=== PATIENT | female | born 1985 | race Caucasian/White ===

== ENCOUNTER → 2016-11-24 | Outpatient (CLI) | payer BC ==
[~2016-11-24] MED LIST: BENZ56AE TP; CODE-54 PO; Docusate Sodium PO; EST1.25T PO; FRS325T PO; Ibuprofen PO; MEDR10TA9 PO; PNV1TABL67 PO
--- NOTE | 2016-11-24 16:01 | Diagnostic Imaging Report ---
INDICATION: survey. TECHNIQUE: Multiple real-time grayscale images were obtained over the gravid uterus. COMPARISON: None FINDINGS: heart rate is 170 beats per minute. The placenta is posterior. No placenta previa. The cervix is the long at 7.1 cm in length and is closed. This measurement might be exaggerated by biometric contraction in the lower uterine segment. The spine, the cord insertion, the bladder, and the kidneys appear unremarkable. The stomach is seen. The four-chamber view is not well noted due to position. The posterior fossa and the lateral ventricle appear unremarkable. There is a two vessel cord seen. Biometrical measurements are as follows: Biparietal 4.4 cm, age 19 weeks 3 days. Head circumference 17.27 cm, age 19 weeks 6 days. Abdominal circumference 13.3 cm, age 18 weeks 6 days. Femur length 3.22 cm, age 20 weeks 1 days. Sonographic estimate age: 19 weeks 4 days. Sonographic estimated date of delivery: 04/16/2017. Estimated Weight: 292 gm (+/- 43 gm). LMP percentile: 18%. heart rate: 170 beats per minute. number: 1 of 1. IMPRESSION: 1. There is a two-vessel cord seen. This increases potential for anomalies or chromosomal anomalies. Consider detailed anatomic survey at a specialized center for better evaluation. 2. The four-chamber view is not well seen due to position. Reevaluation within 2 weeks is suggested. Dictated by: Dictated on workstation # [id number]
== END ==
LOC: RAD 10:03
PROVIDERS: ATTEND Obstetrics & Gynecology
DX: Z36.3 Encounter for antenatal screening for malformations (principal); Z3A.19 19 weeks gestation of pregnancy
CPT/HCPCS: 76805

== ENCOUNTER 2017-03-30 07:00 | Inpatient (IN) | payer BC ==
[~2017-03-30] VITALS: Ht 170.2 cm; Wt 92.1 kg
[2017-03-30] VITALS (36 sets, daily range): BP systolic 115–158; BP diastolic 61–89
[2017-03-30] MEDS ORDERED: D5 LR IV SOLUTION 1,000 ML IV SCH (07:20)
[2017-03-30] MEDS ORDERED: MINERAL OIL CONCENTRATE 99.9% 15 ML UDC TOP PRN (07:30)
[2017-03-30 08:09] LABS: BASOPHILS % (AUTO) 0 % (0-10); EOSINOPHILS % (AUTO) 0 % (0-10); HEMATOCRIT 36 % (35-52); HEMOGLOBIN 11.9 G/DL (11.5-16.0); LYMPHOCYTES # (AUTO) 1.7 X 10^3 (1.0-4.0); LYMPHOCYTES % (AUTO) 23 % (12-44); MEAN CORPUSCULAR HEMOGLOBIN 28 PG (25-34); MEAN CORPUSCULAR HGB CONC 33 G/DL (32-36); MEAN CORPUSCULAR VOLUME 83 FL (80-99); MONOCYTES # (AUTO) 0.6 X 10^3 (0.0-1.0); MONOCYTES % (AUTO) 8 % (0-12); NEUTROPHILS % (AUTO) 68 % (42-75); PLATELET COUNT 76 10^3/uL (130-400); RED BLOOD COUNT 4.31 10^6/uL (4.35-5.85); RED CELL DISTRIBUTION WIDTH 13.4 % (10.0-14.5); WHITE BLOOD COUNT 7.3 10^3/uL (4.3-11.0)
[2017-03-30 08:24] LABS: SMEAR SCAN COMMENT YES
[2017-03-30] MEDS ORDERED: AMPICILLIN 2000 MG INJECTION (IM/IV) ONE (08:43)
[2017-03-30] MEDS ORDERED: AMPICILLIN INJECTION 2,000 MG in NS (IVPB) 50 ML IV ONE (08:45)
--- NOTE | 2017-03-30 08:48 | History & Physical-OB ---
OB - Chief Complaint & HPI Date/Time Date of Admission: Date of Admission: Mar 30, 2017 at 7:00 am Time Seen by Provider: 08:30 Chief Complaint/History OB-Reason for Admission/Chief: Induction of Labor Hx : 2 Hx Para: 1 Expected Date of Delivery: Apr 13, 2017 Gestational Age in Weeks: 38 Other reason for admission: Gestational Thrombocytopenia History of Labs AB pos Antibody neg RI RPR NR HIV NR HBsAg NR GC neg GBS + Allergies and Home Medications Allergies Coded Allergies: No Known Drug Allergies (Unverified , 12/26/13) Home Medications Acetaminophen/Codeine 1 Tab Tablet, 1-2 TAB PO Q4H PRN for MODERATE TO SEVERE PAIN, #30 Prescribed by: KANG SOUZA on 12/28/13 0820 Benzocaine/Menthol 56 Ml Aerosol, 0 ML TP UD PRN for PAIN, #1 Prescribed by: KANG SOUZA on 12/28/13 0820 Ferrous Sulfate 325 Mg Tab, 325 MG PO DAILY@08, #60 Prescribed by: KANG SOUZA on 12/28/13 0820 Medroxyprogesterone Acetate 10 Mg Tablet, 10 MG PO BID for 10 Days Prescribed by: TIERRA GREGORY on 05/07/15 2213 Pnv with Ca,No.72/Iron/FA 1 Ea Tab, 1 EA PO DAILY@0700, #60 Prescribed by: KANG SOUZA on 12/28/13 0820 [Docusate Sodium] 100 MG CAP, 100 MG PO BID Prescribed by: KANG SOUZA on 12/28/13 0820 [Ibuprofen] 600 MG TAB, 600 MG PO Q6H, #60 Prescribed by: KANG SOUZA on 12/28/13 0820 OB - History Hx of Present Care: Yes Ultrasounds: Normal mid trimester US Obstetrical Complications: Other (gestational thrombocytopenia) Medical Complications: None Delivery History Hx Blood Disorders: No Adverse Rxn to Tranfusion: No Patient Past Medical History n/a Social History/Family History HIV/AIDS: No Recent Infectious Disease Expo: No Sexually Transmitted Disease: Yes (CHAMYDIA) Alcohol Use: Denies Use Recreational Drug Use: No Immunizations Hepatitis A: No Hepatitis B: No Tetanus Booster (TDap): Unknown OB - Admission Exam Physical Exam HEENT: NCAT Heart: Rhythm Normal Lungs: Clear Abdomen: Gravid Extremities: Normal Reflexes: Normal Cervical Dilatation: 3cm Effacement: 75% Station: -1 Membranes: Intact Heart Rate: 130's Accelerations: Accelerations Present Decelerations: No Decelerations Short Term Variability: Present Fdc Variability: Average (6-25) Contractions on Admission: 6-10 Minutes Apart Intensity: Moderate Gonzalez Scoring Tool (Modified) Dilation (cm): 3-4cm (2) Effacement (%): 51-79% (2) Descent/Station: -1,0 (2) Cervix Consistency: Soft (2) Cervix Position: Anterior (2) Add 1 point for: Each previous vaginal delivery (1) Gonzalez Score: 11 Labs Laboratory Tests Test 03/30/17 08:00 Range/Units White Blood Count 7.3 4.3-11.0 10^3/uL Red Blood Count 4.31 L 4.35-5.85 10^6/uL Hemoglobin 11.9 11.5-16.0 G/DL Hematocrit 36 35-52 % Mean Corpuscular Volume 83 80-99 FL Mean Corpuscular Hemoglobin 28 25-34 PG Mean Corpuscular Hemoglobin Concent 33 32-36 G/DL Red Cell Distribution Width 13.4 10.0-14.5 % Platelet Count 76 L 130-400 10^3/uL Mean Platelet Volume 7.4-10.4 FL Neutrophils (%) (Auto) 68 42-75 % Lymphocytes (%) (Auto) 23 12-44 % Monocytes (%) (Auto) 8 0-12 % Eosinophils (%) (Auto) 0 0-10 % Basophils (%) (Auto) 0 0-10 % Neutrophils # (Auto) 5.0 1.8-7.8 X 10^3 Lymphocytes # (Auto) 1.7 1.0-4.0 X 10^3 Monocytes # (Auto) 0.6 0.0-1.0 X 10^3 Eosinophils # (Auto) 0.0 0.0-0.3 10^3/uL Basophils # (Auto) 0.0 0.0-0.1 10^3/uL Smear Scan YES OB - Assessment/Plan/Diagnosis Assessment Assessment: induction of labor Plan Induction Method: AROM Discharge Diagnosis Diagnosis: 32 yo @ 38 weeks gestation Gestational thrombocytopenia 78 this AM GBS pos KANG SOUZA DO Mar 30, 2017 8:47 am
[2017-03-30] MEDS ORDERED: INFLUENZA TRIvalent 2017-2018 0.5 ML/45 MCG SYR IM ONE (09:15)
[2017-03-30] MEDS ORDERED: HYDROmorphone (DILAUDID) 2 MG/ML VIAL IVP PRN (12:30)
[2017-03-30] MEDS: OXYTOCIN/NORMAL SALINE 500 ML IV SCH ×2 (12:56→15:43)
[2017-03-30] MEDS ORDERED: AMPICILLIN INJECTION 1,000 MG in NS (IVPB) 50 ML IV SCH (13:00)
[2017-03-30] MEDS ORDERED: OXYTOCIN/NORMAL SALINE 500 ML IV SCH (15:57)
[2017-03-30] MEDS ORDERED: BENZOCAINE/MENTHOL (DERMOPLAST) 56 ML CAN TP PRN ×2 (16:00→17:00)
[2017-03-30] MEDS ORDERED: MEASLES,MUMPS,RUBELLA 1 EA INJ SQ ONE (16:00)
[2017-03-30] MEDS ORDERED: TETANUS,DIPTH,PERTUSS P/F (BOOSTRIX) 0.5 ML VIAL IM ONE (16:00)
[2017-03-30] MEDS ORDERED: WITCH HAZEL(TUCKS) 40 EA JAR TOP PRN ×2 (16:00→17:00)
[2017-03-30] MEDS: IBUPROFEN 600 MG (MOTRIN) TAB PO SCH ×2 (16:54→23:49)
[2017-03-30] MEDS ORDERED: HYDROcodone/APAP 5 MG/325 MG (LORTAB) TAB PO PRN (17:00)
[2017-03-30] MEDS ORDERED: IBUPROFEN 600 MG (MOTRIN) TAB PO SCH (17:00)
[2017-03-30] MEDS ORDERED: DIBUCAINE (NUPERCAINAL) 1% OINT 30 GM TOP PRN (17:00)
--- NOTE | 2017-03-30 17:05 | OB Labor & Delivery Record ---
L&D History Date of Service Date of Service: Mar 30, 2017 History Expected Date of Delivery: Apr 13, 2017 Gestational Age in Weeks: 38 Hx : 2 Hx Para: 1 Complications Events: Routine care Operative Indications (Cesarea: N/A-Vaginal Delivery Intrapartal Events: None Other Complications Gestational thrombocytopenia L&D Stage1 Stage One Onset of Labor - Date: Mar 30, 2017 Monitors and Tracing Monitor Mode: External Heart Rate: 140 Station: +2 Vital Signs VS - Last 72 Hours, by Label 03/30/17 03/30/17 03/30/17 03/30/17 08:00 08:20 08:45 09:00 Temp 98.6 Pulse 83 85 86 85 Resp 18 B/P (MAP) 141/78 (99) 137/73 (94) 132/71 (91) 134/82 (99) O2 Delivery Room Air Room Air Room Air 03/30/17 03/30/17 03/30/17 03/30/17 09:15 09:30 09:45 10:00 Temp 98.8 Pulse 83 82 82 86 Resp 20 B/P (MAP) 145/75 (98) 133/64 (87) 134/69 (90) 129/77 (94) O2 Delivery Room Air Room Air Room Air Room Air 03/30/17 03/30/17 03/30/17 03/30/17 10:15 10:30 10:45 11:00 Pulse 82 78 75 80 B/P (MAP) 130/76 (94) 132/78 (96) 126/61 (82) 127/69 (88) O2 Delivery Room Air Room Air Room Air Room Air 03/30/17 03/30/17 03/30/17 03/30/17 11:15 11:30 11:45 12:00 Pulse 76 76 83 85 B/P (MAP) 131/62 (85) 133/65 (87) 135/72 (93) 143/89 (107) O2 Delivery Room Air Room Air Room Air Room Air 03/30/17 03/30/17 03/30/17 03/30/17 12:15 12:30 12:45 13:00 Pulse 80 78 80 81 Resp 18 B/P (MAP) 137/88 (104) 141/74 (96) 120/70 (87) 125/78 (94) O2 Delivery Room Air Room Air Room Air Room Air 03/30/17 03/30/17 03/30/17 03/30/17 13:15 13:30 13:45 14:00 Temp 98.6 Pulse 76 73 80 81 Resp 22 B/P (MAP) 122/61 (81) 127/69 (88) 137/75 (95) 132/71 (91) O2 Delivery Room Air Room Air Room Air Room Air 03/30/17 03/30/17 03/30/17 14:15 14:30 14:45 Pulse 80 93 74 B/P (MAP) 158/74 (102) 144/76 (98) 133/71 (91) O2 Delivery Room Air Room Air Room Air Rupture of Membranes Amniotic Membrane Rupture Time: 827 Amniotic Membrane Fluid Desc.: Clear Vaginal Bleeding Description: Normal Show L&D Stage2 Stage Two Stage II Date: Mar 30, 2017 Monitors and Tracing Monitor Mode: External Heart Rate: 140 Position: Right Occiput Anterior Presentation: Vertex Cord Descript/Complications Cord Vessel Description: 3 Vessels Delivery Type Delivery Method: Spontaneous Vaginal Anterior Shoulder: Right Episiotomy/Perineal Laceration Laceraction(s)/Extensions: No Condition of Infant Delivery 1 minute Comment: 8 5 minute Comment: 9 Notes Live female infant weight 7lbs 11 oz Condition of Infant Condition of : Living Exam: No Observed Abnormalities Resuscitation Resuscitation: N/A - Spontaneous Resp L&D Stage3 Stage Three Stage III Date: Mar 30, 2017 Pictocin Pitocin Administration mu/min: 4 Pitocin ml/hr: 4 Pitocin Administration Comment: 30 mu wide open at delviery of placenta Placenta Delivery Placenta Delivery: Spontaneous Delivery Summary Summary Estimated blood loss (mL): 300 Attending at delivery: Kang Souza DO Condition of Delivery Examined: Cervix Examined, Uterus Explored Post Hemorrhage: No Condition of Mother stable Condition of (s) stable KANG SOUZA DO Mar 30, 2017 5:05 pm
[2017-03-30] MEDS: DOCUSATE SODIUM 100 MG (COLACE) CAP PO SCH (21:47)
[2017-03-30] MEDS ORDERED: CATHETER FLUSH 10 ML SYR IV SCH ×2 (22:00)
[2017-03-31 05:25] VITALS: BP 128/72
[2017-03-31] MEDS: IBUPROFEN 600 MG (MOTRIN) TAB PO SCH (05:25)
[2017-03-31 06:25] LABS: BASOPHILS % (AUTO) 0 % (0-10); EOSINOPHILS % (AUTO) 0 % (0-10); HEMATOCRIT 30 % (35-52); HEMOGLOBIN 9.7 G/DL (11.5-16.0); LYMPHOCYTES # (AUTO) 1.2 X 10^3 (1.0-4.0); LYMPHOCYTES % (AUTO) 17 % (12-44); MEAN CORPUSCULAR HEMOGLOBIN 27 PG (25-34); MEAN CORPUSCULAR HGB CONC 33 G/DL (32-36); MEAN CORPUSCULAR VOLUME 83 FL (80-99); MONOCYTES # (AUTO) 0.5 X 10^3 (0.0-1.0); MONOCYTES % (AUTO) 7 % (0-12); NEUTROPHILS # (AUTO) 5.7 X 10^3 (1.8-7.8); NEUTROPHILS % (AUTO) 76 % (42-75); PLATELET COUNT 73 10^3/uL (130-400); RED BLOOD COUNT 3.57 10^6/uL (4.35-5.85); RED CELL DISTRIBUTION WIDTH 13.1 % (10.0-14.5); WHITE BLOOD COUNT 7.5 10^3/uL (4.3-11.0)
[2017-03-31] MEDS: DOCUSATE SODIUM 100 MG (COLACE) CAP PO SCH (08:25)
[2017-03-31] MEDS: PRENATAL VITAMIN 1 EA TAB PO SCH (08:25)
[2017-03-31] MEDS: FERROUS SULF 325 MG (IRON) TAB PO SCH (08:25)
[2017-03-31 08:26] VITALS: BP 117/73
--- NOTE | 2017-03-31 10:15 | Postpartum Progress Note ---
Note Note Day # 1 Subjective: Patient is without complaints. Ambulating, voiding. Tolerating a regular diet without nausea or vomiting. Normal lochia. Pain is well controlled with oral pain medications. Objective: Vital Sign - Last 24 Hours 03/30/17 03/30/17 03/30/17 03/30/17 10:15 10:30 10:45 11:00 Pulse 82 78 75 80 B/P (MAP) 130/76 (94) 132/78 (96) 126/61 (82) 127/69 (88) O2 Delivery Room Air Room Air Room Air Room Air 03/30/17 03/30/17 03/30/17 03/30/17 11:15 11:30 11:45 12:00 Pulse 76 76 83 85 B/P (MAP) 131/62 (85) 133/65 (87) 135/72 (93) 143/89 (107) O2 Delivery Room Air Room Air Room Air Room Air 03/30/17 03/30/17 03/30/17 03/30/17 12:15 12:30 12:45 13:00 Pulse 80 78 80 81 Resp 18 B/P (MAP) 137/88 (104) 141/74 (96) 120/70 (87) 125/78 (94) O2 Delivery Room Air Room Air Room Air Room Air 03/30/17 03/30/17 03/30/17 03/30/17 13:15 13:30 13:45 14:00 Temp 98.6 Pulse 76 73 80 81 Resp 22 B/P (MAP) 122/61 (81) 127/69 (88) 137/75 (95) 132/71 (91) O2 Delivery Room Air Room Air Room Air Room Air 03/30/17 03/30/17 03/30/17 03/30/17 14:15 14:30 14:45 15:15 Temp 97.6 Pulse 80 93 74 78 Resp 20 B/P (MAP) 158/74 (102) 144/76 (98) 133/71 (91) 141/73 (95) O2 Delivery Room Air Room Air Room Air Room Air 03/30/17 03/30/17 03/30/17 03/30/17 15:27 15:45 15:57 16:13 Pulse 85 85 83 78 B/P (MAP) 132/70 (90) 140/65 (90) 138/68 (91) 141/73 (95) O2 Delivery Room Air Room Air Room Air Room Air 03/30/17 03/30/17 03/30/17 03/30/17 16:28 16:42 22:00 23:49 Temp 97.8 98.1 Pulse 86 77 80 78 Resp 18 18 18 B/P (MAP) 128/67 (87) 133/66 (88) 130/78 (95) 115/71 (86) Pulse Ox 98 98 O2 Delivery Room Air Room Air Room Air Room Air 03/31/17 03/31/17 05:25 08:26 Temp 97.5 98.0 Pulse 91 92 Resp 18 18 B/P (MAP) 128/72 (90) 117/73 (88) Pulse Ox 99 98 O2 Delivery Room Air Room Air Intake and Output 03/30/17 03/30/17 03/31/17 15:00 23:00 07:00 Intake Total 50 ml 1950 ml Balance 50 ml 1950 ml Laboratory Tests Test 03/31/17 05:23 Range/Units White Blood Count 7.5 4.3-11.0 10^3/uL Red Blood Count 3.57 L 4.35-5.85 10^6/uL Hemoglobin 9.7 L 11.5-16.0 G/DL Hematocrit 30 L 35-52 % Mean Corpuscular Volume 83 80-99 FL Mean Corpuscular Hemoglobin 27 25-34 PG Mean Corpuscular Hemoglobin Concent 33 32-36 G/DL Red Cell Distribution Width 13.1 10.0-14.5 % Platelet Count 73 L 130-400 10^3/uL Mean Platelet Volume 7.4-10.4 FL Neutrophils (%) (Auto) 76 H 42-75 % Lymphocytes (%) (Auto) 17 12-44 % Monocytes (%) (Auto) 7 0-12 % Eosinophils (%) (Auto) 0 0-10 % Basophils (%) (Auto) 0 0-10 % Neutrophils # (Auto) 5.7 1.8-7.8 X 10^3 Lymphocytes # (Auto) 1.2 1.0-4.0 X 10^3 Monocytes # (Auto) 0.5 0.0-1.0 X 10^3 Eosinophils # (Auto) 0.0 0.0-0.3 10^3/uL Basophils # (Auto) 0.0 0.0-0.1 10^3/uL Physical Exam: General - Alert and oriented, no apparent distress Abdomen - Soft, appropriately tender to palpation, non-distended, fundus firm at umbilicus Extremities - no edema, negative Olman's bilaterally Assessment: PPD 1 NVD Recovering well, hemodynamically stable Acute blood loss anemia Gestational thrombocytopenia Plan: Routine care. Encourage breast feeding. Encourage ambulation. Ferrous sulfate supplementation. Plan for discharge tomorrow, repeat plts tomorrow Vitals - Labs Vital Signs - I&O Vital Signs Date Time Temp Pulse Resp B/P (MAP) Pulse Ox O2 Delivery O2 Flow Rate FiO2 03/31/17 08:26 98.0 92 18 117/73 (88) 98 Room Air 03/31/17 05:25 97.5 91 18 128/72 (90) 99 Room Air 03/30/17 23:49 98.1 78 18 115/71 (86) 98 Room Air 03/30/17 22:00 97.8 80 18 130/78 (95) 98 Room Air 03/30/17 16:42 77 18 133/66 (88) Room Air 03/30/17 16:28 86 128/67 (87) Room Air 03/30/17 16:13 78 141/73 (95) Room Air 03/30/17 15:57 83 138/68 (91) Room Air 03/30/17 15:45 85 140/65 (90) Room Air 03/30/17 15:27 85 132/70 (90) Room Air 03/30/17 15:15 97.6 78 20 141/73 (95) Room Air 03/30/17 14:45 74 133/71 (91) Room Air 03/30/17 14:30 93 144/76 (98) Room Air 03/30/17 14:15 80 158/74 (102) Room Air 03/30/17 14:00 81 132/71 (91) Room Air 03/30/17 13:45 80 137/75 (95) Room Air 03/30/17 13:30 98.6 73 22 127/69 (88) Room Air 03/30/17 13:15 76 122/61 (81) Room Air 03/30/17 13:00 81 125/78 (94) Room Air 03/30/17 12:45 80 18 120/70 (87) Room Air 03/30/17 12:30 78 141/74 (96) Room Air 03/30/17 12:15 80 137/88 (104) Room Air 03/30/17 12:00 85 143/89 (107) Room Air 03/30/17 11:45 83 135/72 (93) Room Air 03/30/17 11:30 76 133/65 (87) Room Air 03/30/17 11:15 76 131/62 (85) Room Air 03/30/17 11:00 80 127/69 (88) Room Air 03/30/17 10:45 75 126/61 (82) Room Air 03/30/17 10:30 78 132/78 (96) Room Air 03/30/17 10:15 82 130/76 (94) Room Air I & O 03/31/17 07:00 Intake Total 2000 ml Balance 2000 ml Labs Laboratory Tests 03/31/17 05:23: White Blood Count 7.5, Red Blood Count 3.57L, Hemoglobin 9.7L, Hematocrit 30L, Mean Corpuscular Volume 83, Mean Corpuscular Hemoglobin 27, Mean Corpuscular Hemoglobin Concent 33, Red Cell Distribution Width 13.1, Platelet Count 73L, Mean Platelet Volume , Neutrophils (%) (Auto) 76H, Lymphocytes (%) (Auto) 17, Monocytes (%) (Auto) 7, Eosinophils (%) (Auto) 0, Basophils (%) (Auto) 0, Neutrophils # (Auto) 5.7, Lymphocytes # (Auto) 1.2, Monocytes # (Auto) 0.5, Eosinophils # (Auto) 0.0, Basophils # (Auto) 0.0 KANG SOUZA DO Mar 31, 2017 10:15 am
[2017-03-31 12:30] VITALS: BP 128/79
[2017-03-31 18:11] VITALS: BP 126/78
[2017-03-31 23:55] VITALS: BP 139/89
[2017-04-01 05:59] LABS: HEMATOCRIT 31 % (35-52); HEMOGLOBIN 10.3 G/DL (11.5-16.0); MEAN CORPUSCULAR HEMOGLOBIN 27 PG (25-34); MEAN CORPUSCULAR HGB CONC 33 G/DL (32-36); MEAN CORPUSCULAR VOLUME 83 FL (80-99); PLATELET COUNT 81 10^3/uL (130-400); RED BLOOD COUNT 3.78 10^6/uL (4.35-5.85); RED CELL DISTRIBUTION WIDTH 13.4 % (10.0-14.5); WHITE BLOOD COUNT 7.7 10^3/uL (4.3-11.0)
[2017-04-01 06:15] VITALS: BP 122/78
[2017-04-01] MEDS: FERROUS SULF 325 MG (IRON) TAB PO SCH (08:02)
[2017-04-01] MEDS: DOCUSATE SODIUM 100 MG (COLACE) CAP PO SCH (08:02)
[2017-04-01] MEDS: IBUPROFEN 600 MG (MOTRIN) TAB PO SCH (08:03)
[2017-04-01] MEDS: PRENATAL VITAMIN 1 EA TAB PO SCH (08:04)
--- NOTE | 2017-04-01 08:12 | Discharge Inst-Women's Service ---
Discharge Inst-Women's Serv Depart Medication/Instructions New, Converted or Re-Newed RX: RX on Chart Consults/Follow Up Additional Follow Up: Yes Orders/Referrals Dr. Souza in 6 weeks Activity Activity: Activity as Tolerated Driving Instructions: No Driving for 1 Week NO SMOKING: NO SMOKING Nothing Inside Vagina: No Douching, No [place], No Tampons Diet Discharge Diet: No Restrictions Symptoms to Report to : Bleeding Excessive, Pain Increased, Fever Over 101 Degrees F, Vaginal Bleeding Increase, Questions/Concerns For Any Problems or Questions: Contact Your Physician Skin/Wound Care Bathing Instructions: Shower (x 2 weeks or sitz baths) KANG SOUZA DO Apr 01, 2017 8:12 am
[2017-04-01 08:15] VITALS: BP 125/74
[2017-04-01] MEDS ORDERED: ACHD5005 PO (08:20)
[2017-04-01] MEDS ORDERED: IBUP-1773 PO (08:20)
[2017-04-01] MEDS ORDERED: Benzocaine/Menthol TP (08:20)
[2017-04-01] MEDS ORDERED: FERR325T18 PO (08:20)
--- NOTE | 2017-04-01 08:28 | Postpartum Progress Note ---
Note Note Day #2 Subjective: Patient is without complaints. Ambulating, voiding. Tolerating a regular diet without nausea or vomiting. Normal lochia. Pain is well controlled with oral pain medications.Breast feeding Objective: Vital Sign - Last 24 Hours 03/31/17 03/31/17 03/31/17 04/01/17 12:30 18:11 23:55 06:15 Temp 99.8 98.0 98.1 97.8 Pulse 83 83 74 70 Resp 16 16 16 B/P (MAP) 128/79 (95) 126/78 (94) 139/89 (106) 122/78 (93) Pulse Ox 99 98 99 O2 Delivery Room Air Room Air Room Air Room Air Laboratory Tests Test 04/01/17 05:30 Range/Units White Blood Count 7.7 4.3-11.0 10^3/uL Red Blood Count 3.78 L 4.35-5.85 10^6/uL Hemoglobin 10.3 L 11.5-16.0 G/DL Hematocrit 31 L 35-52 % Mean Corpuscular Volume 83 80-99 FL Mean Corpuscular Hemoglobin 27 25-34 PG Mean Corpuscular Hemoglobin Concent 33 32-36 G/DL Red Cell Distribution Width 13.4 10.0-14.5 % Platelet Count 81 L 130-400 10^3/uL Mean Platelet Volume 7.4-10.4 FL Physical Exam: General - Alert and oriented, no apparent distress Abdomen - Soft, appropriately tender to palpation, non-distended, fundus firm at umbilicus Extremities - no edema, negative Olman's bilaterally Assessment: PPD 2 NVD Gestational thrombocytopenia- levels improving Recovering well, hemodynamically stable Acute blood loss anemia Plan: Routine care. Encourage breast feeding. Encourage ambulation. Ferrous sulfate supplementation. Plan for discharge today Vitals - Labs Vital Signs - I&O Vital Signs Date Time Temp Pulse Resp B/P (MAP) Pulse Ox O2 Delivery O2 Flow Rate FiO2 04/01/17 06:15 97.8 70 16 122/78 (93) 99 Room Air 03/31/17 23:55 98.1 74 16 139/89 (106) 98 Room Air 03/31/17 18:11 98.0 83 126/78 (94) Room Air 03/31/17 12:30 99.8 83 16 128/79 (95) 99 Room Air Labs Laboratory Tests 04/01/17 05:30: White Blood Count 7.7, Red Blood Count 3.78L, Hemoglobin 10.3L, Hematocrit 31L, Mean Corpuscular Volume 83, Mean Corpuscular Hemoglobin 27, Mean Corpuscular Hemoglobin Concent 33, Red Cell Distribution Width 13.4, Platelet Count 81L, Mean Platelet Volume KANG SOUZA DO Apr 01, 2017 8:28 am
[2017-04-01] MEDS ORDERED: INFLUENZA TRIvalent 2017-2018 0.5 ML/45 MCG SYR IM ONE (08:40)
[2017-04-01] MEDS ORDERED: TETANUS,DIPTH,PERTUSS P/F (BOOSTRIX) 0.5 ML VIAL IM ONE (08:40)
== END 2017-04-01 10:30 | disposition home or self-care (01) | DRG 775 ==
LOC: LDRP 07:00
PROVIDERS: ADMIT Obstetrics & Gynecology; ATTEND Obstetrics & Gynecology
PROC: 10E0XZZ Delivery of Products of Conception, External Approach (ICD-10-PCS; principal; 2017-03-30)
DX: O99.113 Other diseases of the blood and blood-forming organs and certain disorders involving the immune mechanism complicating pregnancy, third trimester (principal); D69.6 Thrombocytopenia, unspecified; O99.820 Streptococcus B carrier state complicating pregnancy; O99.03 Anemia complicating the puerperium; D64.9 Anemia, unspecified; Z3A.38 38 weeks gestation of pregnancy; Z37.0 Single live birth; Z23 Encounter for immunization
CPT/HCPCS: 36415; 85025; 85027; 86850; 86900; 86901; 88307; 90715

== ENCOUNTER 2018-03-18 21:07 | Emergency (ER) | payer BC | END 2018-03-18 22:23 | disposition home or self-care (01) | LOC: ER 21:07 ==

== ENCOUNTER 2018-03-28 08:50 | Emergency (ER) | payer BC ==
[~2018-03-28] VITALS: Ht 170.2 cm; Wt 72.6 kg
[~2018-03-28 08:50] MED LIST changes: +ACHD5005 PO; +Benzocaine/Menthol TP; +CEPH500T PO; +FERR325T18 PO; +IBUP-1773 PO
[2018-03-28 09:50] VITALS: BP 110/58
== END 2018-03-28 09:50 | disposition home or self-care (01) ==
LOC: EDUNIT# 08:50 → ER 08:51
DX: S61.411D Laceration without foreign body of right hand, subsequent encounter (principal); X58.XXXD Exposure to other specified factors, subsequent encounter

== ENCOUNTER → 2019-12-15 | Outpatient (CLI) | payer BC ==
--- NOTE | 2019-12-15 12:56 | Diagnostic Imaging Report ---
INDICATION: survey. TECHNIQUE: Multiple real-time grayscale images were obtained over the gravid uterus. COMPARISON: None. FINDINGS: There is a single live fetus in a transverse presentation head to maternal left. heart rate was recorded at 158 bpm. Placenta is anterior. Amniotic fluid volume appears normal. Cervical length is 5.3 cm. Kidneys, bladder and stomach are unremarkable. brain is unremarkable. There is a four-chamber heart. There is a three-vessel cord with normal insertion. spine is unremarkable. Biometrical measurements are as follows: Biparietal 4.71 cm, age 20 weeks 2 days. Head circumference 17.5 cm, age 20 weeks 0 days. Abdominal circumference 14.9 cm, age 20 weeks 1 days. Femur length 3.3 cm, age 20 weeks 2 days. Sonographic estimate age: 20 weeks 2 days. Sonographic estimated date of delivery: 05/01/2020. Estimated Weight: 335 gm (+/- 49 gm). LMP percentile: 38%. heart rate: 158 beats per minute. number: 1 of 1. IMPRESSION: Single live IUP 20 weeks 2 days gestational age. Estimated date of confinement sonographically is 05/01/2020. Dictated by: Dictated on workstation # [id number]
== END ==
LOC: RAD 10:17
PROVIDERS: ATTEND Obstetrics & Gynecology
DX: Z34.92 Encounter for supervision of normal pregnancy, unspecified, second trimester (principal); Z3A.20 20 weeks gestation of pregnancy
CPT/HCPCS: 76805

== ENCOUNTER → 2020-03-22 | Outpatient (CLI) | payer BC | LOC: LABNPT 13:17 | PROVIDERS: ATTEND Obstetrics & Gynecology | DX: R03.0 Elevated blood-pressure reading, without diagnosis of hypertension (principal) | CPT/HCPCS: 82570; 84156 ==

== ENCOUNTER 2020-04-11 19:00 | Inpatient (IN) | payer BC ==
[~2020-04-11] VITALS: Ht 170.2 cm; Wt 87.9 kg
[2020-04-11] MEDS ORDERED: D5 LR IV SOLUTION 1,000 ML IV ONE (19:10)
[2020-04-11] MEDS ORDERED: NS IV 500 ML 500 ML ONE (19:10)
[2020-04-11 20:00] VITALS: BP 135/80
[2020-04-11] MEDS ORDERED: D5 LR IV SOLUTION 1,000 ML IV SCH (20:15)
[2020-04-11] MEDS ORDERED: MISOPROSTOL 100 MCG (CYTOTEC) TAB PO ONE (20:15)
[2020-04-11 20:22] LABS: BASOPHILS % (AUTO) 0 % (0-10); EOSINOPHILS % (AUTO) 1 % (0-10); HEMATOCRIT 37 % (35-52); HEMOGLOBIN 12.1 g/dL (11.5-16.0); LYMPHOCYTES # (AUTO) 2.1 10^3/uL (1.0-4.0); LYMPHOCYTES % (AUTO) 24 % (12-44); MEAN CORPUSCULAR HEMOGLOBIN 28 pg (25-34); MEAN CORPUSCULAR HGB CONC 33 g/dL (32-36); MEAN CORPUSCULAR VOLUME 85 fL (80-99); MEAN PLATELET VOLUME 13.6 fL (9.0-12.2); MONOCYTES # (AUTO) 0.6 10^3/uL (0.0-1.0); MONOCYTES % (AUTO) 7 % (0-12); NEUTROPHILS # (AUTO) 5.8 10^3/uL (1.8-7.8); NEUTROPHILS % (AUTO) 68 % (42-75); PLATELET COUNT 113 10^3/uL (130-400); WHITE BLOOD COUNT 8.5 10^3/uL (4.3-11.0)
[2020-04-11 20:22] LABS: BILIRUBIN,URINE NEGATIVE (NEGATIVE); CLARITY,URINE CLEAR; COLOR,URINE YELLOW; GLUCOSE, URINE (UA) NEGATIVE (NEGATIVE); KETONES,URINE NEGATIVE (NEGATIVE); LEUKOCYTE ESTERASE ,URINE NEGATIVE (NEGATIVE); NITRITE,URINE NEGATIVE (NEGATIVE); PROTEIN,URINE NEGATIVE (NEGATIVE)
[2020-04-11] MEDS ORDERED: NS IV 500 ML 500 ML IV ONE (20:30)
[2020-04-11 20:39] LABS: BACTERIA,URINE NEGATIVE /HPF; SQUAMOUS EPITHELIAL CELL,UR 0-2 /HPF; WBC,URINE 0-2 /HPF
[2020-04-11] MEDS ORDERED: CATHETER FLUSH 10 ML SYR IV SCH (22:00)
[2020-04-12] VITALS (10 sets, daily range): BP systolic 110–132; BP diastolic 58–73
[2020-04-12] MEDS ORDERED: MISOPROSTOL 100 MCG (CYTOTEC) TAB PO SCH (00:15)
[2020-04-12] MEDS ORDERED: OXYTOCIN PRE-MIX DRIP 1,000 ML IV ONE (02:24)
[2020-04-12] MEDS ORDERED: MISOPROSTOL 200 MCG (CYTOTEC) TABLET ONE (02:24)
[2020-04-12] MEDS ORDERED: LIDOCAINE/EPI 2% 1:200,00 (XYLOCAINE) 10 ML VIAL ONE (02:46)
[2020-04-12] MEDS ORDERED: ONDANSETRON 4 MG/2 ML (SDV) Z0FRAN ONE (03:01)
[2020-04-12] MEDS ORDERED: METHYLERGONOVINE 0.2 MG/ML (METHERGINE) AMP ONE (03:03)
[2020-04-12] MEDS: OXYTOCIN PRE-MIX DRIP 500 ML IV SCH ×2 (03:26→03:56)
[2020-04-12] MEDS ORDERED: MEASLES,MUMPS,RUBELLA 1 EA INJ SQ ONE (05:15)
[2020-04-12] MEDS ORDERED: WITCH HAZEL(TUCKS) 40 EA JAR TOP PRN (05:15)
[2020-04-12] MEDS ORDERED: TETANUS,DIPTH,PERTUSS P/F (BOOSTRIX) 0.5 ML VIAL IM ONE (05:15)
[2020-04-12] MEDS ORDERED: BENZOCAINE/MENTHOL (DERMOPLAST) 60 ML CAN TP PRN (05:15)
[2020-04-12] MEDS ORDERED: CATHETER FLUSH 10 ML SYR IV SCH (06:00)
[2020-04-12] MEDS ORDERED: FLU QUADRIvalent (3YOA+) 60 mcg/0.5 ml 2020-21 (AFLURIA) IM ONE (06:30)
[2020-04-12] MEDS ORDERED: LEVO75CA5 PO (07:05)
[2020-04-12] MEDS ORDERED: PREN-8 PO (07:05)
[2020-04-12] MEDS: PRENATAL VITAMIN 1 EA TAB PO SCH (07:40)
[2020-04-12] MEDS: DOCUSATE SODIUM 100 MG (COLACE) CAP PO SCH ×2 (08:00→20:33)
[2020-04-12] MEDS: IBUPROFEN 600 MG (MOTRIN) TAB PO SCH ×3 (08:00→20:33)
--- NOTE | 2020-04-12 08:54 | History & Physical-OB ---
OB - Chief Complaint & HPI Date/Time Date of Admission: Date of Admission: Apr 11, 2020 at 19:00 Date seen by a Provider: Apr 12, 2020 Time Seen by a Provider: 03:00 Chief Complaint/History OB-Reason for Admission/Chief: Induction of Labor Hx : 3 Hx Para: 2 Expected Date of Delivery: May 01, 2020 Gestational Age in Weeks: 37 Gestational Age in Days: 2 Other reason for admission: Gestational thrombocytopenia Admission Nurse Assessment Rev: Yes History of Labs AB pos Antibody neg RI RPR NR HBsAg NR HIV NR GC neg GBS neg Allergies and Home Medications Allergies Coded Allergies: No Known Drug Allergies (Unverified , 12/26/13) Patient Home Medication List Home Medication List Reviewed: Yes OB - History Hx of Present Care: Yes Ultrasounds: Normal mid trimester US Obstetrical Complications: Other (Gestational thrombocytopenia) Medical Complications: None Delivery History Hx Blood Disorders: No Adverse Rxn to Tranfusion: No Patient Past Medical History n/a Social History/Family History 2nd Hand Smoke Exposure: No Immunizations Hepatitis A: No Hepatitis B: Yes Tetanus Booster (TDap): Less than 5yrs Date of Influenza Vaccine: Apr 01, 2017 OB - Admission Exam Physical Exam Vitals: Vital Signs 04/12/20 04/12/20 04:11 06:06 Temp 36.6 Pulse 94 Resp 18 B/P (MAP) 116/65 (82) Pulse Ox 98 O2 Delivery Room Air HEENT: NCAT Heart: Rhythm Normal Lungs: Clear Abdomen: Gravid Extremities: Normal Reflexes: Normal Cervical Dilatation: 2cm Effacement: 75% Station: -1 Membranes: Intact Heart Rate: 130's Accelerations: Accelerations Present Decelerations: No Decelerations Short Term Variability: Present Residential Variability: Average (6-25) Contractions on Admission: 6-10 Minutes Apart Intensity: Mild Labs Laboratory Tests Test 04/11/20 19:15 04/11/20 19:45 04/11/20 20:25 Range/Units Urine Color YELLOW Urine Clarity CLEAR Urine pH 7.0 5-9 Urine Specific [place] 1.025 H 1.016-1.022 Urine Protein NEGATIVE NEGATIVE Urine Glucose (UA) NEGATIVE NEGATIVE Urine Ketones NEGATIVE NEGATIVE Urine Nitrite NEGATIVE NEGATIVE Urine Bilirubin NEGATIVE NEGATIVE Urine Urobilinogen 1.0 < = 1.0 MG/DL Urine Leukocyte Esterase NEGATIVE NEGATIVE Urine RBC (Auto) NEGATIVE NEGATIVE Urine RBC NONE /HPF Urine WBC 0-2 /HPF Urine Squamous Epithelial Cells 0-2 /HPF Urine Crystals NONE /LPF Urine Bacteria NEGATIVE /HPF Urine Casts NONE /LPF Urine Mucus SMALL H /LPF Urine Culture Indicated NO White Blood Count 8.5 4.3-11.0 10^3/uL Red Blood Count 4.33 3.80-5.11 10^6/uL Hemoglobin 12.1 11.5-16.0 g/dL Hematocrit 37 35-52 % Mean Corpuscular Volume 85 80-99 fL Mean Corpuscular Hemoglobin 28 25-34 pg Mean Corpuscular Hemoglobin Concent 33 32-36 g/dL Red Cell Distribution Width 13.5 10.0-14.5 % Platelet Count 113 L 130-400 10^3/uL Mean Platelet Volume 13.6 H 9.0-12.2 fL Immature Granulocyte % (Auto) 1 % Neutrophils (%) (Auto) 68 42-75 % Lymphocytes (%) (Auto) 24 12-44 % Monocytes (%) (Auto) 7 0-12 % Eosinophils (%) (Auto) 1 0-10 % Basophils (%) (Auto) 0 0-10 % Neutrophils # (Auto) 5.8 1.8-7.8 10^3/uL Lymphocytes # (Auto) 2.1 1.0-4.0 10^3/uL Monocytes # (Auto) 0.6 0.0-1.0 10^3/uL Eosinophils # (Auto) 0.0 0.0-0.3 10^3/uL Basophils # (Auto) 0.0 0.0-0.1 10^3/uL Immature Granulocyte # (Auto) 0.0 0.0-0.1 10^3/uL OB - Assessment/Plan/Diagnosis Assessment Assessment: induction of labor Admission Dx 35 yo @ 37.2 weeks Gestational thrombocytopenia GBS neg Admission Status: Inpatient Order (span 2 midnights) Reason for Inpatient Admission: Induction at 37 weeks Plan Plan: Induction Induction Method: per Misoprostol Protocol KANG SOUZA DO Apr 12, 2020 08:54
--- NOTE | 2020-04-12 08:57 | OB Labor & Delivery Record ---
L&D History Date of Service Date of Service: Apr 12, 2020 History Expected Date of Delivery: May 01, 2020 Gestational Age in Weeks: 37 Hx : 3 Hx Para: 2 Complications Events: Routine care (Low platelets in 3rd trimester) Operative Indications (Cesarea: N/A-Vaginal Delivery Intrapartal Events: None L&D Stage1 Stage One Onset of Labor - Date: Apr 12, 2020 Monitors and Tracing Monitor Mode: External Heart Rate: 155 Monitor Accelerations: Uniform Monitor Decelerations: None Station: -1 Snf Variability: Average (6-10) Short Term Variability: Present Presentation: Vertex Vital Signs VS - Last 72 Hours, by Label 04/11/20 04/12/20 04/12/20 04/12/20 20:00 03:00 03:15 03:18 Temp 36.9 Pulse 106 80 Resp 18 18 B/P (MAP) 135/80 (98) 131/73 (92) O2 Delivery Room Air 04/12/20 04/12/20 04/12/20 04/12/20 03:30 03:45 04:00 04:11 Temp 36.8 36.8 36.6 36.9 Pulse 82 82 80 Resp 18 18 18 18 B/P (MAP) 127/59 (81) 125/62 (83) Pulse Ox 98 O2 Delivery Room Air 04/12/20 04/12/20 04:15 06:06 Temp 37.0 36.6 Pulse 79 94 Resp 18 18 B/P (MAP) 132/60 (84) 116/65 (82) Pulse Ox 98 Rupture of Membranes Spontaneous Ruture of Membrane: No Amniotic Membrane Rupture Time: 0315 Amniotic Membrane Fluid Desc.: Clear Vaginal Bleeding Description: None Progress/Notes Patient given one dose of PO misoprostol 100 mcg, and began joleen regularly. She progressed to complete and +2 station with bulging membranes when I arrived and performed AROM. L&D Stage2 Stage Two Stage II Date: Apr 12, 2020 Monitors and Tracing Monitor Mode: External Heart Rate: 155 Monitor Accelerations: Uniform Monitor Decelerations: None Snf Variability: Average (6-10) Short Term Variability: Present Position: Right Occiput Anterior Presentation: Vertex Signs of Distress by FHT Signs of Distress nuchal cord delivered through due to uncontrolled pain/maternal pushing Cord Descript/Complications Cord Vessel Description: 3 Vessels Delivery Type Infant Delivery Method: Spontaneous Vaginal Anterior Shoulder: Left Episiotomy/Perineal Laceration Laceraction(s)/Extensions: No Condition of Delivery 1 minute Comment: 8 5 minute Comment: 9 Notes live female infant weight pending. Condition of Infant Condition of : Living Exam: No Observed Abnormalities Resuscitation Resuscitation: N/A - Spontaneous Resp L&D Stage3 Stage Three Stage III Date: Apr 12, 2020 Pictocin Pitocin Administration Comment: 30 mu wide open at delivery of placenta Placenta Delivery Placenta Delivery: Spontaneous Delivery Summary Summary Estimated blood loss (mL): 250 Attending at delivery: Solitario Souza DO Condition of Delivery Examined: Cervix Examined, Uterus Explored Post Hemorrhage: No Condition of Mother stable Condition of (s) stable SOLITARIO SOUZA DO Apr 12, 2020 08:57
[2020-04-12] MEDS ORDERED: HYDROcodone/APAP 5 MG/325 MG (LORTAB) TAB PO PRN (09:00)
[2020-04-13 00:25] VITALS: BP 115/57
[2020-04-13] MEDS: IBUPROFEN 600 MG (MOTRIN) TAB PO SCH ×3 (02:17→08:35)
[2020-04-13 04:20] VITALS: BP 108/55
[2020-04-13 06:22] LABS: BASOPHILS % (AUTO) 0 % (0-10); EOSINOPHILS # (AUTO) 0.1 10^3/uL (0.0-0.3); EOSINOPHILS % (AUTO) 1 % (0-10); HEMATOCRIT 36 % (35-52); HEMOGLOBIN 11.3 g/dL (11.5-16.0); LYMPHOCYTES # (AUTO) 2.1 10^3/uL (1.0-4.0); LYMPHOCYTES % (AUTO) 26 % (12-44); MEAN CORPUSCULAR HEMOGLOBIN 28 pg (25-34); MEAN CORPUSCULAR HGB CONC 32 g/dL (32-36); MEAN CORPUSCULAR VOLUME 86 fL (80-99); MEAN PLATELET VOLUME 12.8 fL (9.0-12.2); MONOCYTES # (AUTO) 0.4 10^3/uL (0.0-1.0); MONOCYTES % (AUTO) 6 % (0-12); NEUTROPHILS # (AUTO) 5.3 10^3/uL (1.8-7.8); NEUTROPHILS % (AUTO) 67 % (42-75); PLATELET COUNT 93 10^3/uL (130-400)
[2020-04-13 08:15] VITALS: BP 125/59
[2020-04-13] MEDS ORDERED: IBUP-844 PO (08:21)
[2020-04-13] MEDS ORDERED: DCS100C PO (08:21)
[2020-04-13] MEDS ORDERED: ACHD5005 PO (08:21)
[2020-04-13] MEDS ORDERED: BENZ78AE5 TP (08:21)
--- NOTE | 2020-04-13 08:22 | Discharge Inst-Women's Service ---
Discharge Inst-Women's Serv Depart Medication/Instructions New, Converted or Re-Newed RX: RX on Chart Final Diagnosis PPD 1 NVD Problems Reviewed?: Yes Consults/Follow Up Additional Follow Up: Yes Orders/Referrals Dr. Souza in 6 weeks Activity Activity: Activity as Tolerated Driving Instructions: No Driving for 1 Week NO SMOKING: NO SMOKING Nothing Inside Vagina: No Douching, No [employer], No Tampons Diet Discharge Diet: No Restrictions Symptoms to Report to : Bleeding Excessive, Pain Increased, Fever Over 101 Degrees F, Vaginal Bleeding Increase, Questions/Concerns For Any Problems or Questions: Contact Your Physician KANG SOUZA DO Apr 13, 2020 08:22
[2020-04-13] MEDS: PRENATAL VITAMIN 1 EA TAB PO SCH (08:32)
[2020-04-13] MEDS: DOCUSATE SODIUM 100 MG (COLACE) CAP PO SCH (08:32)
--- NOTE | 2020-04-13 08:37 | Postpartum Progress Note ---
Note Note Day # 1 Subjective: Patient is without complaints. Ambulating, voiding. Tolerating a regular diet without nausea or vomiting. Normal lochia. Pain is well controlled with oral pain medications. Objective: Physical Exam: General - Alert and oriented, no apparent distress Abdomen - Soft, appropriately tender to palpation, non-distended, fundus firm at umbilicus Extremities - no edema, negative Olman's bilaterally Assessment: PPD 1 NVD Plan: Routine care. Encourage breast feeding. Encourage ambulation. Ferrous sulfate supplementation. Plan for discharge today Vitals - Labs Vital Signs - I&O Vital Signs Date Time Temp Pulse Resp B/P (MAP) Pulse Ox O2 Delivery O2 Flow Rate FiO2 04/13/20 04:20 36.5 57 18 108/55 (72) 98 Room Air 04/13/20 00:25 36.5 74 18 115/57 (76) 98 Room Air 04/12/20 20:34 36.3 77 18 128/58 (81) 98 Room Air 04/12/20 16:30 36.8 80 18 110/65 (80) 98 Room Air 04/12/20 13:25 36.4 83 16 117/64 (81) 97 Room Air 04/12/20 09:05 36.5 73 16 114/59 (77) 99 Room Air Labs Laboratory Tests 04/13/20 06:00: White Blood Count 8.0, Red Blood Count 4.11, Hemoglobin 11.3L, Hematocrit 36, Mean Corpuscular Volume 86, Mean Corpuscular Hemoglobin 28, Mean Corpuscular Hemoglobin Concent 32, Red Cell Distribution Width 13.4, Platelet Count 93L, Mean Platelet Volume 12.8H, Immature Granulocyte % (Auto) 0, Neutrophils (%) (Auto) 67, Lymphocytes (%) (Auto) 26, Monocytes (%) (Auto) 6, Eosinophils (%) (Auto) 1, Basophils (%) (Auto) 0, Neutrophils # (Auto) 5.3, Lymphocytes # (Auto) 2.1, Monocytes # (Auto) 0.4, Eosinophils # (Auto) 0.1, Basophils # (Auto) 0.0, Immature Granulocyte # (Auto) 0.0 KANG SOUZA DO Apr 13, 2020 08:37
[2020-04-13 11:40] VITALS: BP 125/59
== END 2020-04-13 11:40 | disposition home or self-care (01) | DRG 807 ==
LOC: LDRP 19:00
PROVIDERS: ADMIT Obstetrics & Gynecology; ATTEND Obstetrics & Gynecology
PROC: 10E0XZZ Delivery of Products of Conception, External Approach (ICD-10-PCS; principal; 2020-04-12)
PROC: 10907ZC Drainage of Amniotic Fluid, Therapeutic from Products of Conception, Via Natural or Artificial Opening (ICD-10-PCS; 2020-04-12)
DX: O99.12 Other diseases of the blood and blood-forming organs and certain disorders involving the immune mechanism complicating childbirth (principal); Z37.0 Single live birth; D69.6 Thrombocytopenia, unspecified; Z3A.37 37 weeks gestation of pregnancy; Z20.822 Contact with and (suspected) exposure to COVID-19
CPT/HCPCS: 36415; 81000; 85025; 86850; 86900; 86901; 87635; 90686